=== PATIENT | female | born 1995 ===

== ENCOUNTER 2017-06-02 09:19 | Emergency (ER) | payer OTHER ==
[2017-06-02 09:43] VITALS: BP 93/58
--- NOTE | 2017-06-02 10:02 | UC ---
Lower Extremity/Ankle HPI - HPI Summary HPI Summary: PT HAS HAD BUNIONS SINCE CHILDHOOD. RIGHT WORSE THAN LEFT. PAIN HAS BEEN MUCH WORSE SINCE THE BEGINNING OF THE SUMMER. LAST NIGHT WOKE HER FROM SLEEP AT 2: 30AM. PAIN IS RADIATING TO WHOLE FOOT. SAW A TRUCK UNLOAD[employer] LAST WEEK AND TALKED ABOUT ORTHOTICS VS SURGERY. CALLED HIM TODAY AND IS WAITING TO HEAR BACK. - History of Current Complaint Chief Complaint: UCLowerExtremity Stated Complaint: PAIN IN FEET Time Seen by Provider: 06/02/17 09:54 Hx Obtained From: Patient Hx Last Menstrual Period: 05/26/17 Onset/Duration: Gradual Onset, Lasting Weeks, Still Present Severity Initially: Moderate Severity Currently: Moderate Pain Intensity: 5 Pain Scale Used: 0-10 Numeric Aggravating Factor(s): Standing, Ambulation Alleviating Factor(s): Rest Able to Bear Weight: Yes - WITH PAIN - Allergies/Home Medications Allergies/Adverse Reactions: Allergies Allergy/AdvReac Type Severity Reaction Status Date / Time No Known Allergies Allergy Verified 06/02/17 09:42 PMH/Surg Hx/FS Hx/Imm Hx - Additional Past Medical History Additional PMH: BUNIONS - Surgical History Surgical History: Yes Surgery Procedure, Year, and Place: pilinodal abcess, - Family History Known Family History: Negative: Hypertension, Diabetes - Social History Alcohol Use: Occasionally Substance Use Type: None Smoking Status (MU): Never Smoked Tobacco Review of Systems Constitutional: Negative Skin: Negative Respiratory: Negative Cardiovascular: Negative Gastrointestinal: Negative Musculoskeletal: Arthralgia All Other Systems Reviewed And Are Negative: Yes Physical Exam Triage Information Reviewed: Yes Appearance: Well-Appearing, No Pain Distress, Well-Nourished Vital Signs: Initial Vital Signs Temp 98.8 F 06/02/17 09:37 Pulse 75 06/02/17 09:37 Resp 18 06/02/17 09:37 BP 93/58 06/02/17 09:37 Pulse Ox 100 06/02/17 09:37 Vital Signs Reviewed: Yes Eyes: Positive: Conjunctiva Clear ENT: Positive: Hearing grossly normal Neck: Positive: Supple Respiratory: Positive: No respiratory distress, No accessory muscle use Cardiovascular: Positive: Pulses Normal Abdomen Description: Positive: Soft Musculoskeletal: Positive: No Edema, Other: - BUNION RIGHT > LEFT. SLIGHTLY TENDER. Neurological: Positive: Alert Psychological: Positive: Age Appropriate Behavior Lower Extremity Course/Dx - Course Course Of Treatment: WHILE IN EXAM ROOM DR. WEINSTEIN (DPM) CALLED PT AND ADVISED MELOXICAM. ERX SENT. PT HAS FOLLOW-UP WITH HIM IN 2 DAYS. ALSO GAVE POST -OP SHOE. CONSIDER ORTHO - Differential Dx/Diagnosis Provider Diagnoses: BILATERAL BUNIONS Discharge - Discharge Plan Condition: Stable Disposition: HOME Prescriptions: Meloxicam [Mobic] 7.5 mg PO BID PRN #30 tab PRN Reason: Pain Patient Education Materials: Raoul (ED) Referrals: Mark Johnson MD [Medical Doctor] - If Needed Rubens Weinstein DPM [Doctor of Podiatric Medicine] - (KEEP YOUR FOLLOW-UP APPT IN 2 DAYS) Additional Instructions: WEAR THE POST-OP SHOE FOR COMFORT. MELOXICAM NEEDED FOR PAIN. ALTERNATIVE OPTIONS FOR PODIATRY IN [place]: [facility] Dr. Edd Muniz [address] [place] Dr. Rhett Matias. Please call his office at [phone] to make an appointment to be seen YOU MAY ALSO CHOOSE TO FOLLOW-UP WITH ORTHO HERE IN [place] OR AT [facility] WHEN YOU RETURN FOR THE SEMESTER.
== END 2017-06-02 10:50 | disposition home or self-care (01) ==
LOC: UCEAST 09:19
DX: M21.612 Bunion of left foot (principal); M21.611 Bunion of right foot
CPT/HCPCS: 99201; G0463